=== PATIENT | male | born 1950 | race Two or more races ===

== ENCOUNTER → 2020-03-03 | Outpatient (CLI) | payer BC ==
[~2020-03-03] MED LIST: CONTRAST GIVEN. MC PRN; IOHEXOL 240 MG/ML 50ML VIAL. PO ONE; IOHEXOL 300 MG/ML 100ML VIAL. IV ONE
[2020-03-03 09:52] LABS: GFR 73.9
--- NOTE | 2020-03-03 11:35 | RAD ---
Noncontrast CT scan of the chest without comparison for abdominal pain, weight loss, history of throat cancer. TECHNIQUE: Contiguous helical 5 mm axial images are obtained through the chest. Sagittal and coronal reformations are evaluated. No IV contrast was administered. FINDINGS: Coronary artery calcifications are seen. There is no suspicious mediastinal, hilar, or axillary lymphadenopathy. Central airways are patent. 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 Fullness of left adrenal gland without a discrete mass. Limited evaluation of the upper abdominal organs due to lack of IV contrast. No suspicious osteoblastic or osteolytic bone lesions. Benign calcified granuloma in the peripheral aspect of the right upper lobe. 2 small patchy areas of subsegmental atelectasis the left lung base. No suspicious lung nodules or masses. No areas of focal pneumonic consolidation. No groundglass infiltrates. No pleural effusions. No pneumothorax. IMPRESSION: 1. No acute cardiopulmonary abnormality save for 2 small bands of discoid atelectasis in the left lower lung. 2. Antecedent granulomatous disease the right lung. 3. Coronary artery disease. 4. 11 mm splenic artery aneurysm. Para PQRS Compliance Statement: One or more of the following individualized dose reduction techniques were utilized for this examination: 1. Automated exposure control 2. Adjustment of the mA and/or kV according to patient size 3. Use of iterative reconstruction technique Electronically signed by: Cliff Silver MD (03/03/2020 11:33 AM) [id number]
--- NOTE | 2020-03-03 11:55 | RAD ---
CT of the abdomen and pelvis with IV contrast, and with oral contrast, compared to noncontrast CT scan dated October 30, 2015 for abdominal pain, weight loss, throat cancer. TECHNIQUE: CT of the abdomen and pelvis with IV and oral contrast is obtained. Sagittal and coronal reformations are evaluated. FINDINGS: There are couple areas of subsegmental atelectasis in the lung bases. Liver is normal. Air-filled radiolucent gallstones are present within the gallbladder. No evidence of acute cholecystitis by CT criteria. 11 mm splenic artery aneurysm with no evidence of rupture. Pancreas is normal in appearance. Spleen is normal in appearance. Adrenal glands are grossly unremarkable. Kidneys are normal in appearance. No abnormalities of small bowel are observed. There are couple areas of ill-defined thickening involving the cecum which may be physiologic due to incomplete distention, or related to the terminal ileum, however cecal mass cannot be excluded and consideration for colonoscopy is warranted. The appendix is normal. The urinary bladder is decompressed due to extrinsic compression from a markedly enlarged prostate with an estimated volume of roughly 300 cc. There is heterogeneous enhancement of the prostate gland without a discrete focal prostate mass. Nevertheless, digital rectal exam, PSA evaluation, and consideration for further interrogation with prostate MRI or transrectal ultrasound should be considered given the large size of this gland and consequent obliteration of several adjacent fat planes. There are degenerative changes of lumbar spine. There are well-corticated benign-appearing lucent lesions within the acetabula bilaterally, most likely representing degenerative subchondral cysts. No suspicious osteoblastic or osteolytic bone lesions are identified. IMPRESSION: 1. Marked enlargement of the prostate gland with heterogeneous enhancement throughout. This gland measures approximately 300 cc by volume and due to its size obliterates many of the fat planes which are useful for assessing for underlying malignancy. Consequently, clinical laboratory correlation is advised along with consideration for transrectal ultrasound and/or MRI. 2. Subtle masslike abnormalities within the cecum and descending colon which could easily be physiologic, but could be pathologic as well. Further evaluation with colonoscopy is recommended to assess for occult malignancy. 3. 11 mm splenic artery aneurysm with no evidence of rupture. 4. Cholelithiasis without acute cholecystitis. Para PQRS Compliance Statement: One or more of the following individualized dose reduction techniques were utilized for this examination: 1. Automated exposure control 2. Adjustment of the mA and/or kV according to patient size 3. Use of iterative reconstruction technique Electronically signed by: Cliff Silver MD (03/03/2020 11:52 AM) [id number]
== END | disposition home or self-care (01) ==
LOC: CT 09:12
PROVIDERS: ATTEND Internal Medicine
DX: C14.0 Malignant neoplasm of pharynx, unspecified (principal); J98.11 Atelectasis; N21.0 Calculus in bladder; I72.8 Aneurysm of other specified arteries; N40.0 Benign prostatic hyperplasia without lower urinary tract symptoms; K80.20 Calculus of gallbladder without cholecystitis without obstruction; I25.10 Atherosclerotic heart disease of native coronary artery without angina pectoris
CPT/HCPCS: 36415; 71250; 74177; 82565; 84520; Q9966; Q9967

== ENCOUNTER → 2020-06-17 | Day surgery (SDC) | payer BC ==
[~2020-06-17] MED LIST changes: -CONTRAST GIVEN. MC PRN; -IOHEXOL 240 MG/ML 50ML VIAL. PO ONE; -IOHEXOL 300 MG/ML 100ML VIAL. IV ONE; +IV RINGERS,LACTATED 1000ML 1,000 ML IV SCH; +LATA2.5D2 EACHEYE; +LEVO125T5 PO; +LIDOCAINE 2% PF 5 ML VIAL. ONE; +MELA3TAB43 PO; +PROPOFOL 10 MG/ML (20ML) VIAL. IV ONE
[2020-06-17 08:05] VITALS: BP 105/77
--- NOTE | 2020-06-17 08:59 | CONS ---
DATE OF CONSULTATION: 06/17/2020 REFERRING PHYSICIAN: Dr. Díaz HISTORY OF PRESENT ILLNESS: A 70-year-old male with past medical history significant for colonic polyps, hypertension, glaucoma, hyperlipidemia, BPH, history of tonsil cancer, status post treatments, seen for interval colonoscopy. Bowel habits are regular with occasional constipation. There has been no melena and/or hematochezia. There is also family history of colon cancer with his father. Last colonoscopy was in 2017, which revealed multiple polyps. He is otherwise without additional complaints. PAST MEDICAL HISTORY: Hypertension, glaucoma, hyperlipidemia, history of head and neck cancer, tonsillar cancer, history of reflux, history of colonic polyps. ALLERGIES: None. MEDICATIONS: Include Xalatan, levothyroxine, melatonin. FAMILY AND SOCIAL HISTORY: Significant for colon cancer with his father. PAST SURGICAL HISTORY: Tonsillectomy and hernia repair. REVIEW OF SYSTEMS: Per records. PHYSICAL EXAMINATION: GENERAL: Reveals a well-nourished, well-developed male who is alert, cooperative, in no acute distress. VITAL SIGNS: Temp 98, pulse is 76, respiratory rate 18, pulse ox 95%. LUNGS: Clear. CARDIOVASCULAR: Reveals an S1, S2 without S3, S4 or appreciable murmur. ABDOMEN: Reveals a soft abdomen, normal bowel sounds, without appreciable hepatosplenomegaly. IMPRESSION: History of colonic polyps. Surveillance exam is recommended at this time. Risks and benefits of procedure including risk of hemorrhage and perforation during the operation were discussed. The patient is willing to proceed. I would like to thank Dr. Díaz for allowing us to consult and participate in the patient's care. AURELIO CASTILLO MD DR: CHAGO/tim JOB#: [id number] / [id number] ABY Roblero
--- NOTE | 2020-06-19 14:11 | PATHOLOGY ---
[facility] Accession Number: [id number] . 01 Material submitted: . PART A: colon - DESCENDING COLON POLYP. Modifiers: descending PART B: colon - SIGMOID POLYP. Modifiers: sigmoid . 01 Clinical history: . HX POLYPS . 02 Diagnosis: A. Colon biopsy, descending colon polyp: - Tubular adenoma. . B. Colon biopsy, sigmoid polyp: - Tubular adenoma. ([facility] 06/19/2020) [facility] 06/19/2020 1202 Local . 02 Comment: There is no high-grade dysplasia or evidence of malignancy. ([facility] 06/19/2020) . 02 Electronically signed: . Yobany Fabian MD, Pathologist NPI- [id number] . 01 Gross description: . A. The specimen is received in formalin, labeled "Austen Coyle, descending colon polyp". Received are two segments of pale wang soft tissue ranging in size from 0.2 to 0.3 cm in maximum dimensions. The specimen is submitted entirely in cassette A1. . B. The specimen is received in formalin, labeled "Austen Coyle, sigmoid polyp". Received is a segment of pale wang soft tissue measuring 0.3 cm in maximum dimensions. The specimen is submitted entirely in cassette B1. ([facility]; 06/18/2020) [facility]/QAC 06/18/2020 1942 Local . 02 Pathologist provided ICD-10: D12.4, D12.5 . 02 CPT . 752723, [id number] Specimen Comment: A courtesy copy of this report has been sent to [phone], [phone] Specimen Comment: [id number] Specimen Comment: Report sent to / DR RIDDLE Performed at: [address] [place], [place] [address] [facility] [address], [place], [place] [id number] MD Lorenzo Lua MD Phone: [phone] Performed at: [address] [id number] MD Yobany Fabian MD Phone: [phone]
== END | disposition home or self-care (01) ==
LOC: ENDOS 06:05
PROVIDERS: ATTEND Internal Medicine Gastroenterology
DX: Z12.11 Encounter for screening for malignant neoplasm of colon (principal); K64.0 First degree hemorrhoids; D12.4 Benign neoplasm of descending colon; D12.5 Benign neoplasm of sigmoid colon; I10 Essential (primary) hypertension; E78.00 Pure hypercholesterolemia, unspecified; N40.0 Benign prostatic hyperplasia without lower urinary tract symptoms; E03.9 Hypothyroidism, unspecified; K21.9 Gastro-esophageal reflux disease without esophagitis; Z79.899 Other long term (current) drug therapy; Z20.828 Contact with and (suspected) exposure to other viral communicable diseases; Z98.890 Other specified postprocedural states; Z86.010 Personal history of colon polyps; Z80.0 Family history of malignant neoplasm of digestive organs
CPT/HCPCS: 45385; 87426; 88305; J2704; U0003; 45382